=== PATIENT | female | born 1950 | race Caucasian/White ===

== ENCOUNTER 2019-09-19 22:26 | Emergency (ER) | payer MEDICARE, BC ==
[~2019-09-19] VITALS: Ht 160 cm; Wt 59.0 kg
--- OUTSIDE RECORDS SUMMARY | 2019-09-19 22:29 | XMS REPORT ---
Author Author [facility] Address Unknown Phone Unavailable Care Team Providers Care [employer] Office Telephone Clerk Name Role Phone Unavailable Unavailable Problems This patient has no known problems. Allergies, Adverse Reactions, Alerts This patient has no known allergies or adverse reactions. Medications This patient has no known medications. Results Test Description Test Time Test Comments Text Results Atomic Results Result Comments SCR MAMM BILATERAL REGI CAD DIGITAL 2019-08-16 08:45:13 - SCR MAMM BILATERAL REGI CAD DIGITALBILATERAL DIGITAL SCREENING MAMMOGRAM 3D/2D WITH CAD: 08/09/2019CLINICAL: Asymptomatic. Digital breast tomosynthesis was performed in addition to routine CC and MLO views. Current mammographic images were evaluated by either a AetherPal M-Vu or a IntenseDebate ImageChecker CAD (computer aided detection system). Comparison is made to exams dated 06/09/2018 mammogram, 04/30/2017 mammogram, 02/29/2016 mammogram, 05/10/2015 mammogram, 01/05/2013 mammogram, and 01/07/2014 mammogram - [facility]. There are scattered fibroglandular tissues in both breasts. There are benign vascular calcifications in both breasts. There also are benign scattered calcifications in the right breast. No suspicious mass, architectural distortion, malignant type calcification, or lymph node abnormality detected. Breast architecture is stable compared to prior exams.IMPRESSION: BENIGNThere is no mammographic evidence of malignancy. Resume annual screening mammography in one year. Dilma madrid/penrad:08/16/2019 08:45:13 [employer] Laborer: Ana PHIPPS, [facility]: BIRADS 1-2 Normal Mammogram BI-RADS: 2 Benign SCR MAMM BILATERAL REGI CAD DIGITAL 2018-06-11 16:20:55 - SCR MAMM BILATERAL REGI CAD DIGITALBILATERAL DIGITAL SCREENING MAMMOGRAM 3D/2D WITH CAD: 06/09/2018CLINICAL: Asymptomatic. Digital breast tomosynthesis was performed in addition to routine CC and MLO views. Current mammographic images were evaluated by either a AetherPal M-Vu or a IntenseDebate ImageChecker CAD (computer aided detection system). Comparison is made to exams dated 04/30/2017 mammogram, 02/28 mammogram, 05/10/2015 mammogram, 07/30/2011 mammogram, 05/11/2010 mammogram, and 04/20/2009 mammogram - [facility]. There are scattered fibroglandular tissues in both breasts. There are benign vascular calcifications in both breasts. There also are benign scattered calcifications in the right breast. No suspicious mass, architectural distortion, malignant type calcification, or lymph node abnormality detected. Breast architecture is stable compared to prior exams.IMPRESSION: BENIGNThere is no mammographic evidence of malignancy. Resume annual screening mammography in one year. Dilma madrid/penrad:06/11/2018 16:20:55 [employer] Laborer: Sarah PHIPPS, [facility] sent: BIRADS 1-2 Normal Mammogram BI- RADS: 2 Benign
[2019-09-20 01:05] VITALS: BP 139/52
== END 2019-09-20 01:09 | disposition home or self-care (01) ==
LOC: ER 22:26
DX: T38.3X1A Poisoning by insulin and oral hypoglycemic [antidiabetic] drugs, accidental (unintentional), initial encounter (principal); E11.65 Type 2 diabetes mellitus with hyperglycemia; Y92.008 Other place in unspecified non-institutional (private) residence as the place of occurrence of the external cause; E78.5 Hyperlipidemia, unspecified; E03.9 Hypothyroidism, unspecified
CPT/HCPCS: 36415; 82948; 99283

== ENCOUNTER 2021-01-01 09:58 | Emergency (ER) | payer MEDICARE, BC ==
[~2021-01-01] VITALS: Ht 160 cm; Wt 59.0 kg
[2021-01-01] MEDS ORDERED: KETOROLAC TROMETHAMINE 30 MG/ML VIAL IM STA (10:25)
== END 2021-01-01 11:27 | disposition home or self-care (01) ==
LOC: ER 10:57
DX: M54.2 Cervicalgia (principal); I10 Essential (primary) hypertension; E11.9 Type 2 diabetes mellitus without complications; E78.5 Hyperlipidemia, unspecified; E03.9 Hypothyroidism, unspecified
CPT/HCPCS: 99282; J1885